=== PATIENT | male | born 1980 | race Caucasian/White ===

== ENCOUNTER 2017-12-02 12:17 | Emergency (ER) | payer MEDICAID ==
[~2017-12-02] VITALS: Ht 167.6 cm; Wt 68.2 kg
[2017-12-02 12:56] VITALS: BP 111/64; Ht 167.6 cm; Wt 68.2 kg
== END 2017-12-02 18:49 | disposition left against medical advice (07) ==
LOC: D.ER 12:17
DX: M79.671 Pain in right foot (principal)